=== PATIENT | male | born 1990 | race Caucasian/White ===

== ENCOUNTER 2017-11-18 13:08 | Emergency (ER) | payer OTHER ==
[2017-11-18] MEDS ORDERED: PROPARACAINE 0.5% OPHTH DROPS 15 ML BTL RIGHT EYE STA (13:26)
[2017-11-18] MEDS ORDERED: TOBRAMYCIN 0.3% OPHTH DROPS 5 ML BTL RIGHT EYE STA (13:26)
--- NOTE | 2017-11-18 13:36 | ED ---
Eye Problem HPI - General Chief complaint: Eye Problems Stated complaint: rt eye abrasion Time Seen by Provider: 11/18/17 13:23 Source: patient, RN notes reviewed Mode of arrival: ambulatory Limitations: no limitations - History of Present Illness Initial comments: 27-year-old male presents emergency Department chief complaint of right eye irritation. Patient states it started 2 days ago. He states that he's had a history infections of his eye. Patient states he does wear contact lens has not been wearing them. 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 His tetanus is up- to-date within last 5 years. He denies any visual changes. He states he does have some photosensitivity. - Related Data Previous Rx's Medication Instructions Recorded Tobramycin [Tobrex 0.3% Ophth Soln] 1 drop LEFT EYE Q4HR #5 ml 11/18/17 Allergies Allergy/AdvReac Type Severity Reaction Status Date / Time No Known Allergies Allergy Verified 11/18/17 13:22 Review of Systems ROS Statement: Those systems with pertinent positive or pertinent negative responses have been documented in the HPI. ROS Other: All systems not noted in ROS Statement are negative. Past Medical History Past Medical History: No Reported History History of Any Multi-Drug Resistant Organisms: None Reported Past Surgical History: No Surgical Hx Reported Past Psychological History: No Psychological Hx Reported Smoking Status: Current every day smoker Past Alcohol Use History: None Reported Past Drug Use History: None Reported General Exam Limitations: no limitations General appearance: alert, in no apparent distress Head exam: Present: atraumatic, normocephalic, normal inspection Eye exam: Present: PERRL, EOMI, other (Patient relief with proparacaine to the right eye. Fluorescein dye and Wood's lamp were used to evaluate the right eye there was uptake noted in the central region there is no foreign body.). Absent : normal appearance (Right central area there is an white ulcerated area), scleral icterus, conjunctival injection, periorbital swelling ENT exam: Present: normal exam, normal oropharynx, mucous membranes moist Neck exam: Present: normal inspection, full ROM. Absent: tenderness, meningismus, lymphadenopathy Respiratory exam: Present: normal lung sounds bilaterally. Absent: respiratory distress, wheezes, rales, rhonchi, stridor Cardiovascular Exam: Present: regular rate, normal rhythm, normal heart sounds. Absent: systolic murmur, diastolic murmur, rubs, gallop, clicks Course Vital Signs 11/18/17 13:21 Temperature 98.1 F Pulse Rate 102 H Respiratory 20 Rate Blood Pressure 127/79 O2 Sat by Pulse 100 Oximetry Medical Decision Making - Medical Decision Making 27-year-old male presents from for reevaluation. Patient has a right corneal abrasion/ulceration. Patient will be placed on Tobrex eyedrops he is to use the drops every 2 hours for next 24 in the night before after that. Patient follow-up with on-call ophthalmology Dr. salas. Return parameters were discussed. Disposition Clinical Impression: Corneal ulceration Disposition: HOME SELF-CARE Condition: Stable Instructions: Corneal Ulcer (ED) Additional Instructions: Use Tobrex eyedrops 1 drop every 2 hours for the first 24 hours, then 1 drop every 4 hours for the next 6 days Please return to the Emergency Department if symptoms worsen or any other concerns. Prescriptions: Tobramycin [Tobrex 0.3% Ophth Soln] 1 drop LEFT EYE Q4HR #5 ml Is patient prescribed a controlled substance at d/c from ED?: No Referrals: Yaz Nunez MD [STAFF PHYSICIAN] - 1-2 days Time of Disposition: 13:35
[2017-11-18 13:55] VITALS: BP 126/80; PULSE 98; RESP 18; TEMP 98.2
== END 2017-11-18 13:54 | disposition home or self-care (01) ==
LOC: EC 13:08
DX: H16.001 Unspecified corneal ulcer, right eye (principal); F17.200 Nicotine dependence, unspecified, uncomplicated
CPT/HCPCS: 99283

== ENCOUNTER 2017-12-15 16:06 | Emergency (ER) | payer OTHER ==
[2017-12-15 16:15] VITALS: BP 146/84; PULSE 69; TEMP 97.6
[2017-12-15 16:26] VITALS: RESP 16
--- NOTE | 2017-12-15 16:34 | ED ---
General Adult HPI - General Chief complaint: Dental/Oral Stated complaint: Dental Time Seen by Provider: 12/15/17 16:22 Source: patient, RN notes reviewed Mode of arrival: ambulatory Limitations: no limitations - History of Present Illness Initial comments: Chief complaint history of present illness a 27-year-old male who recently had multiple teeth extracted from his lower jaw. Patient reports he developed what he thinks may be a small infection on the left angle of the jaw. He denies fever or chills. - Related Data Previous Rx's Medication Instructions Recorded Tobramycin [Tobrex 0.3% Ophth Soln] 1 drop LEFT EYE Q4HR #5 ml 11/18/17 Cephalexin [Keflex] 500 mg PO Q6HR #28 cap 12/15/17 Ibuprofen [Motrin] 600 mg PO Q6HR PRN #20 tab 12/15/17 Allergies Allergy/AdvReac Type Severity Reaction Status Date / Time No Known Allergies Allergy Verified 12/15/17 16:15 Review of Systems ROS Statement: Those systems with pertinent positive or pertinent negative responses have been documented in the HPI. Review of systems; no other complaints other than discomfort with a small bump mild discomfort left anterior cervical region. No significant past medical problems. Denies any surgeries. Family history father had prostate cancer mother had breast cancer. Patient denies ALLERGIES. He does smoke strongly encouraged to stop denies alcohol use. ROS Other: All systems not noted in ROS Statement are negative. Past Medical History Past Medical History: No Reported History History of Any Multi-Drug Resistant Organisms: None Reported Past Surgical History: No Surgical Hx Reported Past Psychological History: No Psychological Hx Reported Smoking Status: Current every day smoker Past Alcohol Use History: None Reported Past Drug Use History: None Reported General Exam - General Exam Comments Initial Comments: Physical exam; The patient is here because of tenderness to the left mandible just inferior to where he had multiple teeth extracted within the past week. Patient reports the small bump started several days ago then went away and came back. Palpation of the bump feels to be more bone related the patient reports he feels he can be moved slightly. Also mild anterior cervical lymphadenopathy on the left side. Vital signs are stable afebrile. No difficulty breathing. No stridor. No other complaints. The patient will be placed on antibiotics she does have an appointment to follow-up with people extracted teeth within the week he also has a consult written to be seen by an oral surgeon. Limitations: no limitations Course Vital Signs 12/15/17 16:11 Temperature 97.6 F Pulse Rate 69 Respiratory 16 Rate Blood Pressure 146/84 O2 Sat by Pulse 100 Oximetry Disposition Clinical Impression: Dental abscess Disposition: HOME SELF-CARE Condition: Fair Instructions: Dental Abscess (ED), Toothache (ED) Additional Instructions: Take antibiotic as directed and follow up with your dentist. Also follow-up with the oral surgeon to whom you were rate deferred to Prescriptions: Cephalexin [Keflex] 500 mg PO Q6HR #28 cap Ibuprofen [Motrin] 600 mg PO Q6HR PRN #20 tab PRN Reason: Pain Is patient prescribed a controlled substance at d/c from ED?: No Referrals: None,Stated [Primary Care Provider] - 1-2 days Time of Disposition: 16:34
== END 2017-12-15 16:35 | disposition home or self-care (01) ==
LOC: EC 16:06
DX: K04.7 Periapical abscess without sinus (principal); K08.409 Partial loss of teeth, unspecified cause, unspecified class; R59.0 Localized enlarged lymph nodes; F17.200 Nicotine dependence, unspecified, uncomplicated
CPT/HCPCS: 99282

== ENCOUNTER 2018-03-04 14:40 | Emergency (ER) | payer OTHER ==
[2018-03-04 15:37] VITALS: RESP 16
--- NOTE | 2018-03-04 20:00 | ED ---
Abdominal Pain HPI - General Chief Complaint: Abdominal Pain Stated Complaint: IHS/Abd Pain Time Seen by Provider: 03/04/18 19:10 Source: patient, RN notes reviewed, old records reviewed Mode of arrival: ambulatory Limitations: no limitations - History of Present Illness Initial Comments: 28-year-old male presents emergency department today with chief complaint of pain within his right groin. Patient reports that he was lifting a heavy tray while work. 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 . He reports he is having lifting a heavy tray and felt a pull in his right groin. He states the pain does radiate towards his back. He denies any urinary symptoms or fevers or chills. Patient reports he's also has history of chronic back pain. Patient states that since mid back. He states that he was on gabapentin other medications for this. He denies any fever or chills. Patient states that he is had any other symptoms. - Related Data Home Medications Medication Instructions Recorded Confirmed Gabapentin [Neurontin] 600 mg PO TID 03/04/18 03/04/18 Ibuprofen [Motrin Ib] 400 - 600 mg PO Q6H PRN 03/04/18 03/04/18 Previous Rx's Medication Instructions Recorded Cyclobenzaprine [Flexeril] 10 mg PO TID #12 tab 03/04/18 Ibuprofen 600 mg PO TID #20 tablet 03/04/18 Allergies Allergy/AdvReac Type Severity Reaction Status Date / Time No Known Allergies Allergy Verified 03/04/18 19:40 Review of Systems ROS Statement: Those systems with pertinent positive or pertinent negative responses have been documented in the HPI. ROS Other: All systems not noted in ROS Statement are negative. Past Medical History Past Medical History: No Reported History History of Any Multi-Drug Resistant Organisms: None Reported Past Surgical History: No Surgical Hx Reported Past Psychological History: Anxiety, Depression Smoking Status: Current every day smoker Past Alcohol Use History: None Reported Past Drug Use History: None Reported General Exam - General Exam Comments Initial Comments: Well-appearing 28-year-old male. No acute distress. Limitations: no limitations General appearance: alert, in no apparent distress Head exam: Present: atraumatic, normocephalic, normal inspection Eye exam: Present: normal appearance, PERRL, EOMI. Absent: scleral icterus, conjunctival injection, periorbital swelling ENT exam: Present: normal exam, mucous membranes moist Neck exam: Present: normal inspection. Absent: tenderness, meningismus, lymphadenopathy Respiratory exam: Present: normal lung sounds bilaterally. Absent: respiratory distress, wheezes, rales, rhonchi, stridor Cardiovascular Exam: Present: regular rate, normal rhythm, normal heart sounds. Absent: systolic murmur, diastolic murmur, rubs, gallop, clicks GI/Abdominal exam: Present: soft, tenderness (R groin tenderess. No palpable hernia at this time. ), normal bowel sounds. Absent: distended, guarding, rebound, rigid Back exam: Present: normal inspection Neurological exam: Present: alert, oriented X3, CN II-XII intact Psychiatric exam: Present: normal affect, normal mood Skin exam: Present: warm, dry, intact, normal color. Absent: rash Course Vital Signs 03/04/18 03/04/18 15:34 21:19 Temperature 100.1 F H 98.5 F Pulse Rate 73 60 Respiratory 16 16 Rate Blood Pressure 131/72 129/87 O2 Sat by Pulse 98 100 Oximetry Medical Decision Making - Medical Decision Making 28-year-old male presents today with right groin pain after lifting heavy tray. Concern for hernia. There is no palpable hernia noted this time. He does have some tenderness. Patient with right inguinal area. At this time is a stroke pain. Urinalysis negative. Also complains some midthoracic back is been going on for quite some time. Reports he has muscle spasms. This time patient's labwork was reviewed and unremarkable for any signs of infection the urine. Ultrasound was completed and negative for any acute process. - Lab Data Lab Results 03/04/18 Range/Units 19:43 Urine Color Light Yellow Urine Appearance Clear (Clear) Urine pH 6.0 (5.0-8.0) Ur Specific [place] 1.006 (1.001-1.035) Urine Protein Negative (Negative) Urine Glucose (UA) Negative (Negative) Urine Ketones Negative (Negative) Urine Blood Negative (Negative) Urine Nitrite Negative (Negative) Urine Bilirubin Negative (Negative) Urine Urobilinogen <2.0 (<2.0) mg/dL Ur Leukocyte Esterase Negative (Negative) - Radiology Data Radiology results: report reviewed No evidence of hernia. No solid or cystic mass is identified. Negative thoracic spine exam. Nonacute abdomen noted. Disposition Clinical Impression: Strain of right inguinal muscle, Back spasm Disposition: HOME SELF-CARE Condition: Good Instructions: Groin Strain (ED), Muscle Spasm (ED) Additional Instructions: Patient advised follow-up with primary care physician. Return to the emergency department if any alarming signs or symptoms occur. Prescriptions: Cyclobenzaprine [Flexeril] 10 mg PO TID #12 tab Ibuprofen 600 mg PO TID #20 tablet Is patient prescribed a controlled substance at d/c from ED?: No Referrals: None,Stated [Primary Care Provider] - 1-2 days Olivia Beck MD [STAFF PHYSICIAN] - 1-2 days Time of Disposition: 21:53
[2018-03-04 20:05] LABS: Appearance,Urine Clear (Clear); Bilirubin,Urine Negative (Negative); Blood,Urine Negative (Negative); Color,Urine Light Yellow; Glucose,Urine (UA) Negative (Negative); Ketones,Urine Negative (Negative); Leukocyte Esterase,Urine Negative (Negative); Nitrite,Urine Negative (Negative); Protein,Urine Negative (Negative); Specific Gravity,Urine 1.006 (1.001-1.035); Urobilinogen,Urine <2.0 mg/dL (<2.0)
--- NOTE | 2018-03-04 21:08 | XR ---
EXAMINATION TYPE: XR KUB DATE OF EXAM: 03/04/2018 COMPARISON: NONE HISTORY: Abdominal pain TECHNIQUE: 2 views upright FINDINGS: Bowel gas pattern is normal. There is no sign of intestinal obstruction or pneumoperitoneum . Fecal pattern is normal. There is no evidence of a mass. Lung bases are clear. There are no patholo gic calcifications over the kidneys. There are multiple small metallic densities over the abdomen cou ld be ingested foreign bodies. IMPRESSION: Nonacute abdomen.
--- NOTE | 2018-03-04 21:31 | XR ---
EXAMINATION TYPE: XR thoracic spine 2V DATE OF EXAM: 03/04/2018 COMPARISON: NONE HISTORY: Back pain TECHNIQUE: 3 views FINDINGS: Thoracic vertebra have normal spacing and alignment. Posterior elements are intact. There i s no paraspinal mass. There is no compression fracture. IMPRESSION: Negative thoracic spine exam.
--- NOTE | 2018-03-04 21:49 | US ---
EXAMINATION TYPE: US groin RT DATE OF EXAM: 03/04/2018 COMPARISON: NONE CLINICAL HISTORY: Pain. Right groin pain x 2 days. Exam appears wnl. IMPRESSION: No solid or cystic masses identified. No evidence of a hernia.
[2018-03-04] MEDS ORDERED: KETOROLAC 30 MG/ML 1 ML VIAL IVP STA (22:11)
[2018-03-04 22:24] VITALS: BP 135/89; PULSE 57; TEMP 97
== END 2018-03-04 22:32 | disposition home or self-care (01) ==
LOC: EC 14:40
DX: S39.011A Strain of muscle, fascia and tendon of abdomen, initial encounter (principal); M62.830 Muscle spasm of back; F41.9 Anxiety disorder, unspecified; F17.200 Nicotine dependence, unspecified, uncomplicated; Z79.899 Other long term (current) drug therapy; X50.0XXA Overexertion from strenuous movement or load, initial encounter; Y92.511 Restaurant or cafe as the place of occurrence of the external cause; Y99.0 Civilian activity done for income or pay
CPT/HCPCS: 81003; 72070; 74018; 76882; 99285; 96374; J1885